=== PATIENT | female | born 1970 | race Caucasian/White ===

== ENCOUNTER → 2017-10-28 | Outpatient (CLI) | payer OTHER | END | disposition home or self-care (01) | LOC: KCIC US 10:49 | DX: K43.9 Ventral hernia without obstruction or gangrene (principal); Z90.49 Acquired absence of other specified parts of digestive tract; Z90.710 Acquired absence of both cervix and uterus | CPT/HCPCS: 76700; 76857 ==

== ENCOUNTER 2017-11-09 19:37 | Inpatient (IN) | payer OTHER ==
[2017-11-09 20:29] LABS: ADD MAN DIFF? NO
[2017-11-09 20:31] LABS: BASO # 0.1 x10^3/uL (0.0-0.2); BASO % 1 % (0-3); EOS # 0.5 x10^3/uL (0.0-0.7); EOS % 3 % (0-3); HEMATOCRIT 40.9 % (36.0-47.0); HEMOGLOBIN 14.2 g/dL (12.0-15.5); LYMPH # 5.1 x10^3/uL (1.0-4.8); LYMPH % 36 % (24-48); MEAN CORPUSCULAR HEMOGLOBIN 31 pg (25-35); MEAN CORPUSCULAR HGB CONC 35 g/dL (31-37); MEAN CORPUSCULAR VOLUME 88 fL (79-100); MONO # 0.7 x10^3/uL (0.0-1.1); MONO % 5 % (0-9); NEUT # 7.8 x10^3uL (1.8-7.7); NEUT % 55 % (31-73); PLATELET COUNT 427 x10^3/uL (140-400); RED BLOOD COUNT 4.66 x10^6/uL (3.50-5.40); RED CELL DISTRIBUTION WIDTH 13.1 % (11.5-14.5); WHITE BLOOD COUNT 14.2 x10^3/uL (4.0-11.0)
[2017-11-09 20:32] LABS: BILIRUBIN,URINE NEGATIVE (NEG); CLARITY,URINE CLEAR; COLOR,URINE YELLOW; GLUCOSE,URINE NEGATIVE (NEG); NITRITE,URINE POSITIVE (NEG); PROTEIN,URINE NEGATIVE (NEG-TRACE); UROBILINOGEN,URINE 0.2 mg/dL (0.2 mg/dL)
[2017-11-09 20:39] LABS: BARBITURATES NEG (NEG); BENZODIAZEPINES NEG (NEG); CANNABINOIDS NEG (NEG); COCAINE NEG (NEG); METHADONE NEG (NEG); OPIATES NEG (NEG); PHENCYCLIDINE NEG (NEG)
[2017-11-09 20:40] LABS: AMPHETAMINE/METHAMPHETAMINE POS (NEG); ETHANOL, URINE NEG (NEG)
[2017-11-09 20:41] LABS: ANION GAP 9 (6-14); BLOOD UREA NITROGEN 15 mg/dL (7-20); BUN/CREATININE RATIO 15 (6-20); CALCIUM 9.2 mg/dL (8.5-10.1); CARBON DIOXIDE 29 mmol/L (21-32); CHLORIDE 103 mmol/L (98-107); GFR 59.7; GLUCOSE 96 mg/dL (70-99); POTASSIUM 3.9 mmol/L (3.5-5.1); SODIUM 141 mmol/L (136-145)
[2017-11-09] MEDS: KETOROLAC 15 MG/ML VIAL. IV (20:43)
[2017-11-09] MEDS: ONDANSETRON PF 4 MG/2 ML VIAL. IV (20:45)
[2017-11-09] MEDS: fentaNYL PF VIAL 100 MCG/2 ML VIAL IV (20:45)
[2017-11-09] MEDS: IV RINGERS,LACTATED 1000ML 1,000 ML IV (20:46)
[2017-11-09 20:49] LABS: ALBUMIN 2.9 g/dL (3.4-5.0); ALBUMIN/GLOBULIN RATIO 0.6 (1.0-1.7); ALK PHOS 81 U/L (46-116); ALT (SGPT) 24 U/L (14-59); AST (SGOT) 13 U/L (15-37); LIPASE 191 U/L (73-393); TOTAL BILIRUBIN 0.2 mg/dL (0.2-1.0); TOTAL PROTEIN 7.4 g/dL (6.4-8.2)
[2017-11-09 20:53] LABS: BACTERIA,URINE MANY /HPF (0-FEW); SQUAMOUS EPITHELIAL CELL,UR MOD /LPF; WBC,URINE >40 /HPF (0-4)
[2017-11-09] MEDS: ONDANSETRON ODT 4 MG TAB.RAPDIS. PO (22:30)
[2017-11-09] MEDS: PHENAZOPYRIDINE 200 MG TABLET. PO (23:25)
[2017-11-10] MEDS: IV NORMAL SALINE 1000ML BAG 1,000 ML IV ×3 (00:36→17:43)
[2017-11-10] MEDS: ACETAMINOPHEN 325 MG TABLET. PO ×2 (08:29→17:42)
[2017-11-10] MEDS: SUMAtriptan SUCCINATE 25 MG TABLET PO ×2 (14:59→20:25)
[2017-11-10] MEDS: LACTOBACILLUS RHAMNOSUS GG 1 CAPSULE. PO (20:25)
[2017-11-10] MEDS: cefTRIAXone IV Push 1 GM VIAL. IVP (20:25)
[2017-11-10] MEDS: MORPHINE SULFATE 4 MG/ML DISP.SYRIN. IV (21:57)
[2017-11-10] MEDS: ONDANSETRON PF 4 MG/2 ML VIAL. IV (22:06)
[2017-11-11 04:11] LABS: ADD MAN DIFF? NO
[2017-11-11 04:25] LABS: BASO # 0.1 x10^3/uL (0.0-0.2); BASO % 1 % (0-3); EOS # 0.4 x10^3/uL (0.0-0.7); EOS % 3 % (0-3); HEMATOCRIT 37.1 % (36.0-47.0); HEMOGLOBIN 12.9 g/dL (12.0-15.5); LYMPH # 4.3 x10^3/uL (1.0-4.8); LYMPH % 37 % (24-48); MEAN CORPUSCULAR HEMOGLOBIN 31 pg (25-35); MEAN CORPUSCULAR HGB CONC 35 g/dL (31-37); MEAN CORPUSCULAR VOLUME 88 fL (79-100); MONO # 0.5 x10^3/uL (0.0-1.1); MONO % 5 % (0-9); NEUT # 6.3 x10^3uL (1.8-7.7); NEUT % 55 % (31-73); PLATELET COUNT 370 x10^3/uL (140-400); RED BLOOD COUNT 4.22 x10^6/uL (3.50-5.40); RED CELL DISTRIBUTION WIDTH 13.2 % (11.5-14.5); WHITE BLOOD COUNT 11.5 x10^3/uL (4.0-11.0)
[2017-11-11 04:40] LABS: ANION GAP 7 (6-14); BLOOD UREA NITROGEN 13 mg/dL (7-20); CALCIUM 8.6 mg/dL (8.5-10.1); CARBON DIOXIDE 30 mmol/L (21-32); CHLORIDE 108 mmol/L (98-107); GFR 59.7; GLUCOSE 99 mg/dL (70-99); SODIUM 145 mmol/L (136-145)
[2017-11-11] MEDS: SUMAtriptan SUCCINATE 25 MG TABLET PO (08:42)
[2017-11-11] MEDS: LACTOBACILLUS RHAMNOSUS GG 1 CAPSULE. PO (08:42)
[2017-11-11] MEDS: diphenhydrAMINE HCL 25 MG CAPSULE PO (12:49)
== END 2017-11-11 17:38 | disposition home or self-care (01) | DRG 872 ==
LOC: 4 NORTH 23:05 → ER 19:37
DX: A41.9 Sepsis, unspecified organism (principal); E44.0 Moderate protein-calorie malnutrition; N10 Acute pyelonephritis; K43.9 Ventral hernia without obstruction or gangrene; R31.9 Hematuria, unspecified; E66.9 Obesity, unspecified; F41.9 Anxiety disorder, unspecified; G43.909 Migraine, unspecified, not intractable, without status migrainosus; E03.9 Hypothyroidism, unspecified; J44.9 Chronic obstructive pulmonary disease, unspecified; F17.210 Nicotine dependence, cigarettes, uncomplicated; Z90.10 Acquired absence of unspecified breast and nipple; Z68.37 Body mass index [BMI] 37.0-37.9, adult; Z90.49 Acquired absence of other specified parts of digestive tract; Z90.710 Acquired absence of both cervix and uterus; Z79.899 Other long term (current) drug therapy
CPT/HCPCS: 36415; 74176; 80048; 80053; 80307; 81001; 83605; 83690; 85025; 87086; 96361; 96365; 96375; 99285-25; J0690; J0696; J1885; J2060; J2270; J2405; J3010; J7030; J7120; Q0163

== ENCOUNTER 2017-11-23 07:04 | Day surgery (SDC) | payer OTHER ==
[~2017-11-23 07:04] MED LIST: HYDROmorphone 2 MG/ML VIAL IV; MORPHINE SULFATE 4 MG/ML DISP.SYRIN. IV; ONDANSETRON PF 4 MG/2 ML VIAL. IV; PROCHLORPERAZINE 10 MG/2 ML VIAL. IV; fentaNYL PF VIAL 100 MCG/2 ML VIAL IV
[2017-11-23] MEDS ORDERED: MIDAZOLAM HCL/PF 2 MG/2 ML VIAL. ×2 (07:34→07:47)
[2017-11-23] MEDS: IV RINGERS,LACTATED 1000ML 1,000 ML IV (07:37)
[2017-11-23] MEDS ORDERED: fentaNYL PF VIAL 100 MCG/2 ML VIAL ×3 (07:47→09:37)
[2017-11-23] MEDS ORDERED: SEVOFLURANE 61 TO 120 MINUTES. IH (08:12)
[2017-11-23] MEDS ORDERED: ROCURONIUM 50 MG/5 ML VIAL. (08:13)
[2017-11-23] MEDS ORDERED: GLYCOPYRROLATE 1 MG/5 ML VIAL. (08:13)
[2017-11-23] MEDS ORDERED: LIDOCAINE 2% PF Vial for OR 5 ML VIAL. ×2 (08:13→08:14)
[2017-11-23] MEDS ORDERED: NEOSTIGMINE METHYLSULFATE 5 MG/5 ML SYRINGE. (08:13)
[2017-11-23] MEDS ORDERED: PROPOFOL 20 ML IV (08:13)
[2017-11-23] MEDS ORDERED: ONDANSETRON PF 4 MG/2 ML VIAL. ×2 (08:14)
[2017-11-23] MEDS ORDERED: DEXAMETHASONE SOD PHOS 20 MG/5 ML VIAL. ×2 (08:14)
[2017-11-23] MEDS ORDERED: PHENYLEPHRINE in 0.9% NACL PF 1 MG/10 ML SYRINGE. IV (08:14)
[2017-11-23] MEDS: BUPIVACAINE-EPI 0.25%-1:200000 50 ML VIAL. (08:40)
[2017-11-23] MEDS ORDERED: ESMOLOL 100 MG/10 ML VIAL. IV (08:51)
[2017-11-23] MEDS ORDERED: KETOROLAC 30 MG/ML INJ FOR OR. INJ (08:54)
[2017-11-23] MEDS: fentaNYL PF VIAL 100 MCG/2 ML VIAL IV ×2 (09:42→10:15)
[2017-11-23] MEDS: LIDOCAINE 1% PF 2 ML VIAL. ID (09:52)
[2017-11-23] MEDS ORDERED: ALBUTEROL SULFATE 2.5 MG/3 ML NEBU. (09:55)
[2017-11-23] MEDS: ALBUTEROL SULFATE 2.5 MG/3 ML NEBU. NEB (09:58)
[2017-11-23] MEDS ORDERED: ceFAZolin 2GM PREMIX 2 GM/50 ML BAG IV (10:00)
[2017-11-23] MEDS: oxyCODONE/APAP 5/325 1 TAB TABLET PO (11:10)
== END 2017-11-23 12:10 | disposition home or self-care (01) ==
LOC: SURG 07:04
DX: K43.2 Incisional hernia without obstruction or gangrene (principal); G43.909 Migraine, unspecified, not intractable, without status migrainosus; F41.9 Anxiety disorder, unspecified; Z98.890 Other specified postprocedural states; Z98.51 Tubal ligation status; Z79.899 Other long term (current) drug therapy; Z90.49 Acquired absence of other specified parts of digestive tract; E66.9 Obesity, unspecified; Z68.38 Body mass index [BMI] 38.0-38.9, adult; Z90.710 Acquired absence of both cervix and uterus; Z87.442 Personal history of urinary calculi; E03.9 Hypothyroidism, unspecified; F90.9 Attention-deficit hyperactivity disorder, unspecified type; F60.6 Avoidant personality disorder; F32.9 Major depressive disorder, single episode, unspecified; F17.210 Nicotine dependence, cigarettes, uncomplicated; Z83.49 Family history of other endocrine, nutritional and metabolic diseases; Z81.8 Family history of other mental and behavioral disorders; Z82.49 Family history of ischemic heart disease and other diseases of the circulatory system; Z80.49 Family history of malignant neoplasm of other genital organs; Z72.89 Other problems related to lifestyle; Z88.0 Allergy status to penicillin; Z88.5 Allergy status to narcotic agent; Z88.8 Allergy status to other drugs, medicaments and biological substances; Z87.01 Personal history of pneumonia (recurrent)
CPT/HCPCS: 49654; 88302; 94640; A7015; C1781; J0690; J1100; J1885; J2250; J2370; J2405; J2704; J2710; J3010; J3490; J7120; J7613